=== PATIENT | female | born 1975 | race Caucasian/White ===

== ENCOUNTER 2019-01-03 16:03 | Emergency (ER) | payer MEDICAID ==
[~2019-01-03] VITALS: Ht 152.4 cm; Wt 49.3 kg
[~2019-01-03 16:03] MED LIST: NO MEDS
[2019-01-03 16:05] VITALS: Ht 152.4 cm; Wt 49.3 kg
--- NOTE | 2019-01-03 19:21 | ERD ---
ER Documentation Chief Complaint Chief Complaint FLU SYMPTOMS X 2 WEEKS HPI This is a 43-year-old female presents with flulike symptoms on and off for the last 2 weeks. Patient has been having cough, associated with this, has been using [id number] medications that are provided some relief. She denies shortness of breath, she has no history of tobacco use, asthma and COPD. She has no recent hospitalizations. ROS All systems reviewed and are negative except as per history of present illness. Medications Home Meds Reported Medications [No Meds] No Conflict Check 02/10/11 Allergies Allergies: Coded Allergies: No Known Drug Allergies (Verified Allergy, Mild, 02/10/11) PMhx/Soc Medical and Surgical Hx: pt denies Surgical Hx History of Surgery: No Anesthesia Reaction: No Hx Neurological Disorder: No Hx Respiratory Disorders: No Hx Cardiac Disorders: Yes (HTN) Hx Psychiatric Problems: No Hx Miscellaneous Medical Probl: Yes (HIGH CHOLESTEROL, HEADACHES) Hx Alcohol Use: No Hx Substance Use: No Hx Tobacco Use: No Smoking Status: Never smoker Physical Exam Vitals Vital Signs Date Temp Pulse Resp B/P (MAP) Pulse Ox O2 O2 Flow FiO2 Time Delivery Rate 01/03/19 99.5 78 18 151/86 99 16:05 (107) Physical Exam Const: Well-appearing, nontoxic actively coughing in room Head: Atraumatic Eyes: Normal Conjunctiva ENT: Normal External Ears, Nose and Mouth. Neck: Full range of motion. No meningismus. Resp: Clear to auscultation bilaterally, no wheezes rales or rhonchi. Breath sounds are equal bilaterally Cardio: Regular rate and rhythm, no murmurs Abd: Soft, non tender, non distended. Normal bowel sounds Skin: No petechiae or rashes Back: No midline or flank tenderness Ext: No cyanosis, or edema Neur: Awake and alert Psych: Normal Mood and Affect Procedures/MDM 43-year-old female presents with cough and flulike symptoms times 2 weeks. Exam reveals a well-appearing nontoxic female in no acute respiratory distress. Clinically she has a flulike illness, bronchitis is a consideration, her lung e xam was normal, and she had no hypoxia, I do not suspect complicated pneumonia at this time, I do not suspect pneumothorax. Given the prolonged nature of her symptoms, I think it is reasonable to treat empirically with antibiotics, for possible early pneumonia with azithromycin, as well as Tamiflu, will also give prescription for albuterol. At discharge patient was in no acute distress. Departure Diagnosis: Primary Impression: Influenza-like symptoms Condition: Stable Patient Instructions: Influenza (Adult) ERROL HA MD Jan 03, 2019 19:21
[2019-01-03] MEDS ORDERED: ALBU18HF INHALATION (19:53)
[2019-01-03] MEDS ORDERED: OSEL75CA23 PO (19:53)
[2019-01-03] MEDS ORDERED: AZIT500T3 PO (19:53)
[2019-01-03 20:10] VITALS: BP 140/83; PULSE 74; RESP 19
== END 2019-01-03 20:11 | disposition home or self-care (01) ==
LOC: FTE 16:03
DX: R05 Cough (principal); I10 Essential (primary) hypertension
CPT/HCPCS: 99283